=== PATIENT | female | born 1990 | race Caucasian/White ===

== ENCOUNTER 2016-07-12 09:32 | Emergency (ER) | payer MEDICAID ==
[~2016-07-12] VITALS: Ht 177.8 cm; Wt 64.0 kg
[2016-07-12 09:40] VITALS: BP 110/56; PULSE 68; RESP 16; TEMP 98.3; O2SAT 98
[2016-07-12] MEDS ORDERED: SODIUM CHLOR 0.9% 1000 ML INJ 1,000 ML IV SCH (09:46)
[2016-07-12] MEDS ORDERED: PERC5TAB12 PO (09:52)
[2016-07-12] MEDS ORDERED: ONDANSETRON HCL 4 MG/2 ML VIAL IVP ONE (10:00)
[2016-07-12] MEDS ORDERED: SODIUM CHLORIDE 0.9% FLUSH 5 ML FLUSH IVF PRN (10:00)
[2016-07-12 10:17] LABS: BLOOD, URINE NEG (NEG); GLUCOSE,URINE NEG (NEG); KETONE, URINE NEG (NEG); NITRITE,URINE NEG (NEG); PH, URINE 8.5 (5.0-8.5)
--- NOTE | 2016-07-12 10:17 | PD ---
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 She denies any unusual vaginal discharge, vaginal bleeding, urinary symptoms, or other issues. She does not know any sick contacts. Modifying Factors: None Associated Signs & Symptoms: Nausea, vomiting, diarrhea, low-grade fevers, Risk Factors: None PFSH Past Medical History ADHD: Yes ( A CHILD NOT MEDICATED NOW) Diabetes: No Diminished Hearing: No Medical other: Yes Immunizations Current: Yes Tetanus Vaccination: < 5 Years Influenza Vaccination: Yes ?: : 5 Para: 2 Miscarriage: 2 : 2 Ovarian Cysts: Yes Social History Alcohol Use: No Tobacco Use: No Substance Use: No Allergies-Medications (Allergen,Severity, Reaction): Coded Allergies: Contrast Media (Verified Allergy, Severe, vomiting, hives, 07/12/16) Tramadol (Unverified Allergy, Severe, UNK, 07/12/16) Penicillin (Verified Allergy, Unknown, unknown, 07/12/16) Reported Meds & Prescriptions Reported Meds & Active Scripts Active Reported Percocet (Oxycodone-Acetaminophen) 5-325 mg Tab 1 Tab PO Q4H PRN Review of Systems Except as stated in HPI: all other systems reviewed are Neg Physical Exam Narrative GENERAL: Well-nourished, well-developed young white female patient in no acute distress. SKIN: Warm and dry. HEAD: Normocephalic. EYES: No scleral icterus. No injection or drainage. NECK: Supple, trachea midline. CARDIOVASCULAR: Regular rate and rhythm without murmurs, gallops, or rubs. RESPIRATORY: Breath sounds equal bilaterally. No accessory muscle use. GASTROINTESTINAL: Abdomen soft, non-tender, nondistended. Benign. MUSCULOSKELETAL: No cyanosis, or edema. BACK: Nontender without obvious deformity. No CVA tenderness. Data Data Last Documented VS Vital Signs Date Time Temp Pulse Resp B/P Pulse Ox O2 Delivery O2 Flow Rate FiO2 07/12/16 10:19 98 Room Air 07/12/16 09:40 98.3 68 16 110/56 Orders Beta Hcg (Quant/Titer) (07/12/16 09:46) Complete Blood Count With Diff (07/12/16 09:46) Comprehensive Metabolic Panel (07/12/16 09:46) Lipase (07/12/16 09:46) Urinalysis - C+S If Indicated (07/12/16 09:46) Iv Access Insert/Monitor (07/12/16 09:46) Ecg Monitoring (07/12/16 09:46) Oximetry (07/12/16 09:46) Ondansetron Inj (Zofran Inj) (07/12/16 10:00) Sodium Chlor 0.9% 1000 Ml Inj (Ns 1000 M (07/12/16 09:46) Sodium Chloride 0.9% Flush (Ns Flush) (07/12/16 10:00) Labs Laboratory Tests Test 07/12/16 10:10 White Blood Count 9.5 TH/MM3 Red Blood Count 3.93 MIL/MM3 Hemoglobin 11.8 GM/DL Hematocrit 35.5 % Mean Corpuscular Volume 90.2 FL Mean Corpuscular Hemoglobin 30.0 PG Mean Corpuscular Hemoglobin 33.3 % Concent Red Cell Distribution Width 12.9 % Platelet Count 229 TH/MM3 Mean Platelet Volume 8.0 FL Neutrophils (%) (Auto) 72.9 % Lymphocytes (%) (Auto) 22.1 % Monocytes (%) (Auto) 3.6 % Eosinophils (%) (Auto) 0.5 % Basophils (%) (Auto) 0.9 % Neutrophils # (Auto) 7.0 TH/MM3 Lymphocytes # (Auto) 2.1 TH/MM3 Monocytes # (Auto) 0.3 TH/MM3 Eosinophils # (Auto) 0.0 TH/MM3 Basophils # (Auto) 0.1 TH/MM3 CBC Comment DIFF FINAL Differential Comment Urine pH 8.5 Urine Protein NEG mg/dL Urine Glucose (UA) NEG mg/dL Urine Ketones NEG mg/dL Urine Occult Blood NEG Urine Nitrite NEG Urine Bilirubin NEG Urine Leukocyte Esterase NEG Sodium Level 141 MEQ/L Potassium Level 3.7 MEQ/L Chloride Level 106 MEQ/L Carbon Dioxide Level 26.5 MEQ/L Anion Gap 9 MEQ/L Blood Urea Nitrogen 10 MG/DL Creatinine 0.63 MG/DL Estimat Glomerular Filtration 113 ML/MIN Rate Random Glucose 80 MG/DL Calcium Level 8.4 MG/DL Total Bilirubin 0.4 MG/DL Aspartate Amino Transf 7 U/L (AST/SGOT) Alanine Aminotransferase 13 U/L (ALT/SGPT) Alkaline Phosphatase 57 U/L Total Protein 6.6 GM/DL Albumin 3.6 GM/DL Lipase 91 U/L Human Chorionic Gonadotropin, 173[address] MIU/ML Quant MDM Medical Decision Making Medical Screen Exam Complete: Yes Emergency Medical Condition: Yes Medical Record Reviewed: Yes Interpretation(s) Laboratory Tests Test 07/12/16 10:10 Red Blood Count 3.93 MIL/MM3 (4.00-5.30) Neutrophils (%) (Auto) 72.9 % (16.0-70.0) Calcium Level 8.4 MG/DL (8.5-10.1) Aspartate Amino Transf 7 U/L (15-37) (AST/SGOT) Human Chorionic Gonadotropin, [address] MIU/ML Quant (0-5) Differential Diagnosis Nausea, vomiting, diarrhea, fevers, dehydration versus metabolic issues versus hyperemesis gravidarum versus gastroenteritis Narrative Course Abdomen is benign and I do not suspect an acute intra-abdominal process. A CT is consistent with dates and ultrasound transabdominally done by me in the ER does show an IUP. At this point, patient was given IV fluids and antibiotics in the ER and on reevaluation at 11:20 AM is doing better, has had no vomiting episodes in the ER. 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 Return for any worsening in vomiting, any abdominal pain, leading, or new symptoms as needed. The plan has been discussed with her and she states understanding. Procedures Procedure Narrative Transabdominal ultrasound done by me shows early IUP. Diagnosis Primary Impression: MILD HYPEREMESIS GRAVIDARUM Med/Other Pt SpecificInfo: Prescription(s) given Scripts Metoclopramide (Reglan)10 Mg Tab10 Mg PO TIDAC PRN (NAUSEA OR VOMITING) #15 TAB Ref 0 Prov:Kyung Dubose MD 07/12/16 Disposition: 01 DISCHARGE HOME Condition: Stable Kyung Dubose MD Jul 12, 2016 10:17
[2016-07-12 10:19] VITALS: O2SAT 98
[2016-07-12 10:20] LABS: BASOPHIL # 0.1 TH/MM3 (0-0.2); BASOPHIL % 0.9 % (0.0-2.0); EOSINOPHIL % 0.5 % (0.0-4.0); HEMATOCRIT 35.5 % (35.0-46.0); HEMO FLAGS DIFF FINAL; LYMPH % 22.1 % (9.0-44.0); LYMPHOCYTE # 2.1 TH/MM3 (1.0-4.8); MEAN CELL VOLUME 90.2 FL (80.0-100.0); MEAN CORPUSCULAR HGB CONC 33.3 % (32.0-36.0); MONO % 3.6 % (0.0-8.0); NEUT % 72.9 % (16.0-70.0); PLATELET COUNT 229 TH/MM3 (150-450); RED BLOOD COUNT 3.93 MIL/MM3 (4.00-5.30); RED CELL DISTRIBUTION WIDTH 12.9 % (11.6-17.2); WHITE BLOOD COUNT 9.5 TH/MM3 (4.0-11.0)
[2016-07-12 10:24] LABS: BACTERIA, URINE MOD /hpf; COMMENT (UR) CULTURE INDICATED; CULTURE IF INDICATED CULTURE INDICATED; METHOD OF COLLECTION CLEAN CATCH; SQUAMOUS EPITHELIAL CELL URINE > 8 /hpf (0-5); URINE COLOR YELLOW (YELLW/STRAW); WBC, URINE 0-2 /hpf (0-5)
[2016-07-12 10:26] LABS: CHLORIDE 106 MEQ/L (98-107); POTASSIUM 3.7 MEQ/L (3.5-5.1); SODIUM (NA) 141 MEQ/L (136-145)
[2016-07-12 10:31] LABS: ANION GAP 9 MEQ/L (5-15); BICARBONATE 26.5 MEQ/L (21.0-32.0); BLOOD UREA NITROGEN 10 MG/DL (7-18)
[2016-07-12 10:33] LABS: ALT (GPT) 13 U/L (10-53)
[2016-07-12 10:34] LABS: AST (GOT) 7 U/L (15-37); GLOMERULAR FILTRATION RATE 113 ML/MIN (>89)
[2016-07-12 10:35] LABS: TOTAL BILIRUBIN ADULT 0.4 MG/DL (0.2-1.0)
[2016-07-12 10:36] LABS: ALKALINE PHOSPHATASE 57 U/L (45-117)
[2016-07-12 10:52] LABS: BETA HCG QUANT 42901 MIU/ML (0-5)
[2016-07-12] MEDS ORDERED: REGL10TA5 PO (11:24)
[2016-07-12 11:26] VITALS: BP 99/55; PULSE 55; RESP 17; O2SAT 100
== END 2016-07-12 11:37 | disposition home or self-care (01) ==
LOC: PHED 09:32
DX: O21.0 Mild hyperemesis gravidarum (principal); Z3A.09 9 weeks gestation of pregnancy; R50.9 Fever, unspecified
CPT/HCPCS: 80053; 81001; 83690; 84702; 85025; 87086; 96361; 96374; 99284; J2405; J7030

== ENCOUNTER 2016-07-17 21:35 | Emergency (ER) | payer MEDICAID ==
[~2016-07-17] VITALS: Ht 177.8 cm; Wt 64.7 kg
[~2016-07-17 21:35] MED LIST: PERC5TAB12 PO; REGL10TA5 PO
[2016-07-17 21:45] VITALS: BP 98/66; PULSE 63; RESP 20; TEMP 98.9; O2SAT 100
[2016-07-18] MEDS ORDERED: ONDANSETRON HCL 4 MG/2 ML VIAL IV PUSH ONE ×2 (00:30→02:00)
[2016-07-18] MEDS ORDERED: SODIUM CHLOR 0.9% 1000 ML INJ 1,000 ML IV ONE ×2 (00:30→02:00)
--- NOTE | 2016-07-18 00:30 | PD ---
HPI Chief Complaint: GI Complaint Time Seen by Provider: 00:21 Travel History International Travel<30 days: No Contact w/Intl Traveler<30days: No Traveled to known affect area: No History of Present Illness HPI 25-year-old female presents to the emergency department for complaint of vomiting and vomiting with streaks of blood and generalized abdominal pain. Patient was seen for same complaint Friday 5 days ago. Patient states she does not feel any improvement. Patient denies any vaginal bleeding or vaginal discharge. Patient's last menstrual period was 05/18/16. Patient states she is 5 para 2 AB 2. Patient is not yet seen an SLP. Patient is not taking vitamins. Patient denies tobacco use. Patient's had no sore throat no earache no cough no congestion no chest pain no flank pain no localized abdominal pain. Patient was seen in April for same complaint and CT of the abdomen and pelvis revealed no acute abnormality. PFSH Past Medical History Narrative Medical ADHD anemia chief 5 P2 Ab2 LMP 05/18/16 ovarian cyst no tobacco use nursing notes reviewed ADHD: Yes ( A CHILD NOT MEDICATED NOW) Anemia: Yes ("LOW IRON") Diabetes: No Diminished Hearing: No Immunizations Current: Yes Influenza Vaccination: Yes ?: LMP: 05/18/16 : 5 Para: 2 Miscarriage: 2 : 0 Ovarian Cysts: Yes Past Surgical History Surgical History: No Previous Surgery Social History Alcohol Use: No Tobacco Use: No (QUIT MAY 2016) Substance Use: No Allergies-Medications (Allergen,Severity, Reaction): Coded Allergies: Contrast Media (Verified Allergy, Severe, vomiting, hives, 07/17/16) Tramadol (Unverified Allergy, Severe, UNK, 07/17/16) Penicillin (Verified Allergy, Unknown, unknown, 07/17/16) Reported Meds & Prescriptions Reported Meds & Active Scripts Active Phenergan (Promethazine HCl) 25 Mg Tab 25 Mg PO Q6H PRN Keflex (Cephalexin) 500 Mg Cap 500 Mg PO Q6H 7 Days Reglan (Metoclopramide HCl) 10 Mg Tab 10 Mg PO TIDAC PRN Reported Percocet (Oxycodone-Acetaminophen) 5-325 mg Tab 1 Tab PO Q4H PRN Review of Systems Except as stated in HPI: all other systems reviewed are Neg Physical Exam Narrative GENERAL: Well-developed well-nourished female in no acute distress no respiratory distress SKIN: Warm and dry. HEAD: Normocephalic. EYES: No scleral icterus. No injection or drainage. NECK: Supple, trachea midline. No JVD or lymphadenopathy. CARDIOVASCULAR: Regular rate and rhythm without murmurs, gallops, or rubs. RESPIRATORY: Breath sounds equal bilaterally. No accessory muscle use. GASTROINTESTINAL: Abdomen soft, diffusely tender without guarding or rebound, nondistended. MUSCULOSKELETAL: No cyanosis, or edema. BACK: Nontender without obvious deformity. No CVA tenderness. Data Data Last Documented VS Vital Signs Date Time Temp Pulse Resp B/P Pulse Ox O2 Delivery O2 Flow Rate FiO2 07/18/16 05:16 81 16 95/51 100 Room Air 07/18/16 03:15 98.1 Orders Beta Hcg (Quant/Titer) (07/18/16 00:21) Complete Blood Count With Diff (07/18/16 00:21) Comprehensive Metabolic Panel (07/18/16 00:21) Urinalysis - C+S If Indicated (07/18/16 00:21) Sodium Chlor 0.9% 1000 Ml Inj (Ns 1000 M (07/18/16 00:30) Ondansetron Inj (Zofran Inj) (07/18/16 00:30) Urine Culture (07/18/16 00:30) Sodium Chlor 0.9% 1000 Ml Inj (Ns 1000 M (07/18/16 02:00) Potassium Chloride (Kcl) (07/18/16 02:00) Ondansetron Inj (Zofran Inj) (07/18/16 02:00) Acetaminophen (Tylenol) (07/18/16 02:45) Ceftriaxone Inj (Rocephin Inj) (07/18/16 03:00) Us Pelvis Preg(Sgl/ Gestat) (07/18/16 ) Labs Laboratory Tests Test 07/18/16 00:30 White Blood Count 13.3 TH/MM3 Red Blood Count 3.88 MIL/MM3 Hemoglobin 11.4 GM/DL Hematocrit 35.4 % Mean Corpuscular Volume 91.1 FL Mean Corpuscular Hemoglobin 29.4 PG Mean Corpuscular Hemoglobin 32.3 % Concent Red Cell Distribution Width 12.7 % Platelet Count 233 TH/MM3 Mean Platelet Volume 7.8 FL Neutrophils (%) (Auto) 60.2 % Lymphocytes (%) (Auto) 32.5 % Monocytes (%) (Auto) 5.8 % Eosinophils (%) (Auto) 1.0 % Basophils (%) (Auto) 0.5 % Neutrophils # (Auto) 8.0 TH/MM3 Lymphocytes # (Auto) 4.3 TH/MM3 Monocytes # (Auto) 0.8 TH/MM3 Eosinophils # (Auto) 0.1 TH/MM3 Basophils # (Auto) 0.1 TH/MM3 CBC Comment DIFF FINAL Differential Comment Urine Color YELLOW Urine Turbidity SLIGHT Urine pH 6.5 Urine Specific [place] 1.015 Urine Protein NEG mg/dL Urine Glucose (UA) NEG mg/dL Urine Ketones NEG mg/dL Urine Occult Blood NEG Urine Nitrite NEG Urine Bilirubin NEG Urine Leukocyte Esterase TRACE Urine RBC 0-2 /hpf Urine WBC 3-5 /hpf Urine Squamous Epithelial > 8 /hpf Cells Urine Bacteria MANY /hpf Microscopic Urinalysis Comment CULTURE INDICATED Sodium Level 140 MEQ/L Potassium Level 3.3 MEQ/L Chloride Level 105 MEQ/L Carbon Dioxide Level 28.1 MEQ/L Anion Gap 7 MEQ/L Blood Urea Nitrogen 16 MG/DL Creatinine 0.56 MG/DL Estimat Glomerular Filtration 130 ML/MIN Rate Random Glucose 84 MG/DL Calcium Level 8.3 MG/DL Total Bilirubin 0.2 MG/DL Aspartate Amino Transf 6 U/L (AST/SGOT) Alanine Aminotransferase 12 U/L (ALT/SGPT) Alkaline Phosphatase 60 U/L Total Protein 6.5 GM/DL Albumin 3.6 GM/DL Human Chorionic Gonadotropin, 345[address] MIU/ML Quant [facility] Medical Decision Making Medical Screen Exam Complete: Yes Emergency Medical Condition: Yes Medical Record Reviewed: Yes Interpretation(s) US pelvis: IUP positive heart rate; cyst CONCLUSION: 7-1/2 week intrauterine gestation Eb Marsh MD on July 18, 2016 at 6:10 Board Certified Radiologist. This report was verified electronically. Laboratory Tests Test 07/18/16 00:30 White Blood Count 13.3 TH/MM3 Red Blood Count 3.88 MIL/MM3 Hemoglobin 11.4 GM/DL Hematocrit 35.4 % Mean Corpuscular Volume 91.1 FL Mean Corpuscular Hemoglobin 29.4 PG Mean Corpuscular Hemoglobin 32.3 % Concent Red Cell Distribution Width 12.7 % Platelet Count 233 TH/MM3 Mean Platelet Volume 7.8 FL Neutrophils (%) (Auto) 60.2 % Lymphocytes (%) (Auto) 32.5 % Monocytes (%) (Auto) 5.8 % Eosinophils (%) (Auto) 1.0 % Basophils (%) (Auto) 0.5 % Neutrophils # (Auto) 8.0 TH/MM3 Lymphocytes # (Auto) 4.3 TH/MM3 Monocytes # (Auto) 0.8 TH/MM3 Eosinophils # (Auto) 0.1 TH/MM3 Basophils # (Auto) 0.1 TH/MM3 CBC Comment DIFF FINAL Differential Comment Urine Color YELLOW Urine Turbidity SLIGHT Urine pH 6.5 Urine Specific [place] 1.015 Urine Protein NEG mg/dL Urine Glucose (UA) NEG mg/dL Urine Ketones NEG mg/dL Urine Occult Blood NEG Urine Nitrite NEG Urine Bilirubin NEG Urine Leukocyte Esterase TRACE Urine RBC 0-2 /hpf Urine WBC 3-5 /hpf Urine Squamous Epithelial > 8 /hpf Cells Urine Bacteria MANY /hpf Microscopic Urinalysis Comment CULTURE INDICATED Sodium Level 140 MEQ/L Potassium Level 3.3 MEQ/L Chloride Level 105 MEQ/L Carbon Dioxide Level 28.1 MEQ/L Anion Gap 7 MEQ/L Blood Urea Nitrogen 16 MG/DL Creatinine 0.56 MG/DL Estimat Glomerular Filtration 130 ML/MIN Rate Random Glucose 84 MG/DL Calcium Level 8.3 MG/DL Total Bilirubin 0.2 MG/DL Aspartate Amino Transf 6 U/L (AST/SGOT) Alanine Aminotransferase 12 U/L (ALT/SGPT) Alkaline Phosphatase 60 U/L Total Protein 6.5 GM/DL Albumin 3.6 GM/DL Human Chorionic Gonadotropin, [address] MIU/ML Quant Differential Diagnosis Vomiting, hyperemesis gravidarum, UTI, ectopic , appendicitis, dehydration, electrolyte disturbance Narrative Course IV access obtained specimens collected and sent for resulting IV fluids administered along with Zofran 4 mg IV Patient identified to have abnormal urinalysis and leukocytosis concerning for UTI; Rocephin 1 g IV piggyback ordered to be administered along with additional Zofran and additional liter of normal saline; patient reports she has no problems with cephalosporins and takes those without allergic reaction Patient requesting work excuse Patient encouraged to complete course. As prescribed take medication as prescribed as needed for nausea vomiting monitor temperature for fever take acetaminophen/Tylenol as needed for discomfort and to follow-up with her SLP. Quantitative hCG has doubled since last visit; ultrasound to rule out ectopic ordered Diagnosis Primary Impression: UTI (urinary tract infection) Qualified Code: N39.0 - Urinary tract infection without hematuria, site unspecified Additional Impressions: Qualified Code: Z3A.01 - Less than 8 weeks gestation of Vomiting Qualified Code: R11.2 - Non-intractable vomiting with nausea, unspecified vomiting type Hyperemesis gravidarum Referrals: Spd Tech call for appointment Patient Instructions: General Instructions Departure Forms: Tests/Procedures, Work Release Special Instructions: no work x 2 days Additional Instructions: Increase fluid hydration Follow-up with your SLP Take vitamins Take Phenergan as prescribed as needed for nausea and/or vomiting; do NOT use previously prescribed Reglan if taking phenergan Complete course of antibiotic as prescribed Return to the emergency department for any concerns or change in condition Monitor temperature every 4 hours with thermometer and take as needed acetaminophen/Tylenol for fever 100.4F or greater or for minor pain No work 2 days Med/Other Pt SpecificInfo: Prescription(s) given Scripts Promethazine (Phenergan)25 Mg Tab25 Mg PO Q6H PRN (Nausea/Vomiting) #10 TAB Ref 0 Prov:Emili Marie MD 07/18/16 Cephalexin (Keflex)500 Mg [id number] Mg PO Q6H 7 Days Ref 0 Prov:Emili Marie MD 07/18/16 Disposition: 01 DISCHARGE HOME Condition: Stable Emili Marie MD Jul 18, 2016 00:30
[2016-07-18 00:43] LABS: BASOPHIL # 0.1 TH/MM3 (0-0.2); BASOPHIL % 0.5 % (0.0-2.0); EOSINOPHIL # 0.1 TH/MM3 (0-0.4); HEMATOCRIT 35.4 % (35.0-46.0); HEMO FLAGS DIFF FINAL; LYMPH % 32.5 % (9.0-44.0); LYMPHOCYTE # 4.3 TH/MM3 (1.0-4.8); MEAN CELL VOLUME 91.1 FL (80.0-100.0); MEAN CORPUSCULAR HEMOGLOBIN 29.4 PG (27.0-34.0); MEAN CORPUSCULAR HGB CONC 32.3 % (32.0-36.0); MONO % 5.8 % (0.0-8.0); NEUT % 60.2 % (16.0-70.0); PLATELET COUNT 233 TH/MM3 (150-450); RED BLOOD COUNT 3.88 MIL/MM3 (4.00-5.30); RED CELL DISTRIBUTION WIDTH 12.7 % (11.6-17.2); WHITE BLOOD COUNT 13.3 TH/MM3 (4.0-11.0)
[2016-07-18 00:44] LABS: BLOOD, URINE NEG (NEG); GLUCOSE,URINE NEG (NEG); KETONE, URINE NEG (NEG); NITRITE,URINE NEG (NEG); PH, URINE 6.5 (5.0-8.5)
[2016-07-18 00:45] LABS: URINE COLOR YELLOW (YELLW/STRAW)
[2016-07-18 00:52] LABS: BACTERIA, URINE MANY /hpf; COMMENT (UR) CULTURE INDICATED; CULTURE IF INDICATED CULTURE INDICATED; RBC, URINE 0-2 /hpf (0-3); SQUAMOUS EPITHELIAL CELL URINE > 8 /hpf (0-5)
[2016-07-18 00:55] LABS: CHLORIDE 105 MEQ/L (98-107); POTASSIUM 3.3 MEQ/L (3.5-5.1); SODIUM (NA) 140 MEQ/L (136-145)
[2016-07-18 00:58] LABS: ANION GAP 7 MEQ/L (5-15); BICARBONATE 28.1 MEQ/L (21.0-32.0)
[2016-07-18 00:59] LABS: BLOOD UREA NITROGEN 16 MG/DL (7-18)
[2016-07-18 01:01] LABS: ALT (GPT) 12 U/L (10-53)
[2016-07-18 01:02] LABS: AST (GOT) 6 U/L (15-37); GLOMERULAR FILTRATION RATE 130 ML/MIN (>89)
[2016-07-18 01:03] LABS: TOTAL BILIRUBIN ADULT 0.2 MG/DL (0.2-1.0)
[2016-07-18 01:04] LABS: ALKALINE PHOSPHATASE 60 U/L (45-117)
[2016-07-18 01:19] LABS: BETA HCG QUANT 79965 MIU/ML (0-5)
[2016-07-18] MEDS ORDERED: POTASSIUM CHLORIDE 20 MEQ CONTROLLED RELEASE TAB PO ONE (02:00)
[2016-07-18] MEDS ORDERED: ACETAMINOPHEN 325 MG TAB PO ONE (02:45)
[2016-07-18] MEDS ORDERED: cefTRIAXone INJ 1,000 MG in SODIUM CHLORIDE 0.9% INJ 100 ML IV ONE (03:00)
[2016-07-18 03:15] VITALS: BP 97/56; PULSE 68; RESP 18; TEMP 98.1; O2SAT 100
[2016-07-18] MEDS ORDERED: PROM25TA5 PO (05:14)
[2016-07-18] MEDS ORDERED: CEPH-460 PO (05:14)
[2016-07-18 05:16] VITALS: BP 95/51; PULSE 81; RESP 16; O2SAT 100
--- NOTE | 2016-07-18 06:14 | RADHPO ---
EXAM DATE/TIME: 07/18/2016 04:25 [place] COMPARISON: No previous studies available for comparison. INDICATIONS : Ectopic. LAB(S): Beta-hC,965 MEDICAL HISTORY : . Ovarian cysts. ADHD. SURGICAL HISTORY : No recorded surgery. ENCOUNTER: Initial ACUITY: 1 week PAIN SCORE: 5/10 LOCATION: Bilateral pelvis MEASUREMENTS: UTERUS: 10.5 x 6.9 x 5.9 cm ENDOMETRIAL STRIPE: 11 mm RIGHT OVARY: 3.7 x 3.7 x 3.4 cm LEFT OVARY: 3.4 x 1.7 x 1.4 cm FINDINGS: UTERUS: An intrauterine gestation is present with estimated gestational age of 7-1/2 weeks cardiac acti vity is detected at 141 beats per minute. RIGHT OVARY: 2.7 cm cyst which may be corpus luteum LEFT OVARY: Ovary contains no mass or significant cystic lesion. MISCELLANEOUS: No free fluid. CONCLUSION: 7-1/2 week intrauterine gestation Eb Marsh MD on July 18, 2016 at 6:10 Board Certified Radiologist. This report was verified electronically.
== END 2016-07-18 06:09 | disposition home or self-care (01) ==
LOC: PHED 21:35
DX: O23.41 Unspecified infection of urinary tract in pregnancy, first trimester (principal); O21.0 Mild hyperemesis gravidarum; B96.89 Other specified bacterial agents as the cause of diseases classified elsewhere; Z3A.01 Less than 8 weeks gestation of pregnancy
CPT/HCPCS: 76801; 80053; 81001; 84702; 85025; 87086; 96361; 96365; 96375; 96376; 99284; J0696; J2405; J7030

== ENCOUNTER 2016-12-02 20:54 | Inpatient (IN) | payer MEDICAID ==
[2016-12-02] VITALS (7 sets, daily range): BP systolic 90–108; BP diastolic 46–72; PULSE 81–92
[~2016-12-02] VITALS: Ht 175.3 cm; Wt 72.6 kg
[~2016-12-02 20:54] MED LIST changes: +CEPH-460 PO; +PROM25TA5 PO
[2016-12-02] MEDS ORDERED: MAGNESIUM SULFATE 40 GM PREMIX 1,000 ML IV SCH (22:36)
[2016-12-02] MEDS ORDERED: ceFAZolin 2 GM PREMIX 50 ML IV ONE (22:44)
[2016-12-02] MEDS ORDERED: ACETAMINOPHEN 325 MG TAB PO PRN (22:45)
[2016-12-02] MEDS ORDERED: ONDANSETRON HCL 4 MG/2 ML VIAL IV PRN (22:45)
[2016-12-02] MEDS ORDERED: MAGNESIUM SULFATE 4 GM PREMIX 100 ML IV ONE (22:45)
[2016-12-02] MEDS ORDERED: SODIUM CHLORIDE 0.9% FLUSH 10 ML FLUSH IV FLUSH PRN (22:45)
[2016-12-02] MEDS ORDERED: CALCIUM GLUCONATE 10% 1 GM/10 ML VIAL IV PRN (22:45)
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
[2016-12-02] MEDS ORDERED: GABA300C5 PO (22:50)
[2016-12-02] MEDS ORDERED: ULTR50TA5 PO (22:50)
[2016-12-02 23:00] LABS: BLOOD, URINE LARGE (NEG); COMMENT (UR) CULTURE INDICATED; CULTURE IF INDICATED CULTURE INDICATED; GLUCOSE,URINE NEG (NEG); KETONE, URINE NEG (NEG); NITRITE,URINE NEG (NEG); SQUAMOUS EPITHELIAL CELL URINE <1 /hpf (0-5); URINE COLOR YELLOW (YELLW/STRAW)
[2016-12-02] MEDS ORDERED: BETAMETHASONE SOD PHOS/ACETATE SUSP 30 MG/5 ML VIAL IM SCH (23:00)
[2016-12-02 23:06] LABS: AMPHETAMINE, URINE NEG (NEG); BARBITURATES, URINE NEG (NEG); COCAINE, URINE NEG (NEG)
[2016-12-02] MEDS: LACTATED RINGER'S 1000 ML INJ 1,000 ML IV SCH ×2 (23:07→23:36)
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
[2016-12-03] VITALS (13 sets, daily range): BP systolic 99–119; BP diastolic 57–69; PULSE 74–84; RESP 18–20; TEMP 97.5
[2016-12-03] MEDS ORDERED: BUTORPHANOL TARTRATE INJ 2 MG/ML VIAL IM PRN (00:30)
[2016-12-03 00:53] LABS: CHLAMYDIA PCR NOT DETECTED (NOT DETECT); NEISSERIA PCR NOT DETECTED (NOT DETECT)
--- NOTE | 2016-12-03 03:32 | PD.OB.ANTE ---
Subjective Interval History RN notified me that pt continues to c/o leaking. pt reports she is still feeling vaginal pressure, but decreased pain with contractions Objective Vital Signs Vital Signs Date Time Temp Pulse Resp B/P Pulse Ox O2 Delivery O2 Flow Rate FiO2 12/03/16 00:00 74 101/61 12/02/16 23:45 92 108/72 12/02/16 23:40 84 98/62 12/02/16 23:35 84 106/54 12/02/16 23:30 85 99/58 12/02/16 23:25 88 98/63 12/02/16 23:22 85 90/46 12/02/16 23:17 81 104/61 Lab & Micro Results Test 12/02/16 12/02/16 21:30 22:05 Urine Color YELLOW Urine Turbidity CLEAR Urine pH 7.0 Urine Specific [place] 1.012 Urine Protein NEG mg/dL Urine Glucose (UA) NEG mg/dL Urine Ketones NEG mg/dL Urine Occult Blood LARGE Urine Nitrite NEG Urine Bilirubin NEG Urine Urobilinogen LESS THAN 2.0 MG/DL Urine Leukocyte Esterase TRACE Urine RBC /hpf Urine WBC 9 /hpf Urine Squamous Epithelial <1 /hpf Cells Microscopic Urinalysis Comment CULTURE INDICATED Urine Opiates Screen NEG Urine Barbiturates Screen NEG Urine Amphetamines Screen NEG Urine Benzodiazepines Screen NEG Urine Cocaine Screen NEG Urine Cannabinoids Screen NEG Clue Cells (Wet Prep) NONE SEEN Vaginal Trichomonas (Wet Prep) NONE SEEN Vaginal Yeast (Wet Prep) NONE SEEN Fibronectin POSITIVE Chlamydia trachomatis DNA NOT DETECTED (PCR) Neisseria gonorrhoeae DNA NOT DETECTED (PCR) Blood Type O POSITIVE Blood Bank Comment Date/Time Procedure Status Source Growth 12/02/16 21:30 Urine Culture Received Urine Clean Catch Pending Physical Exam GENERAL: Well-nourished, well-developed patient. ABDOMEN/GI: gravid GENITOURINARY: External Genitalia: intact and normal in appearance Cervix: [visually closed with scant mucous/bloody discharge at os Dilatation: visually closed Effacement: [-] Station: [-] Presentation: [-] Membranes: negative pool, negative valsalva, amnisure swab collected faintly + but blood present Uterine Contractions: none tracing on toco FHT's: Category: 1 Baseline: 130s Reactive: [-] Variability: [-] Decels: [-] EXTREMITIES: No cyanosis or edema, non-tender, without signs of DVT. Assessment and Plan Assessment and Plan 25 y/o with IUP at 27.1 wks with contractions, + FFN, and questionable SROM continue current care Valentin Pérez MD Dec 03, 2016 03:32
--- NOTE | 2016-12-03 06:56 | PD.OB.ANTE ---
Subjective Interval History Patient continues to feel abdominal pressure and have vaginal bleeding. She also continues to feel that she is leaking fluid. She is having widely spaced contractions. She also notes a headache since starting the medications. Positive movement. She denies any lightheadedness, chest pain, or shortness of breath. Antepartum ROS: Reports: Loss of fluid, Vaginal bleeding, movement normal , Contractions, Denies: New complaints (Ifeoma Carrion MD R2) Objective Vital Signs Vital Signs Date Time Temp Pulse Resp B/P Pulse Ox O2 Delivery O2 Flow Rate FiO2 12/03/16 06:00 79 101/61 12/03/16 06:00 18 12/03/16 05:00 78 103/57 12/03/16 04:00 77 104/61 12/03/16 03:00 78 99/60 12/03/16 02:00 80 114/66 12/03/16 01:00 84 102/66 12/03/16 00:00 18 12/03/16 00:00 74 101/61 12/02/16 23:45 92 108/72 12/02/16 23:40 84 98/62 12/02/16 23:35 84 106/54 12/02/16 23:30 85 99/58 12/02/16 23:25 88 98/63 12/02/16 23:22 85 90/46 12/02/16 23:17 81 104/61 Lab & Micro Results Test 12/02/16 12/02/16 21:30 22:05 Urine Color YELLOW Urine Turbidity CLEAR Urine pH 7.0 Urine Specific [place] 1.012 Urine Protein NEG mg/dL Urine Glucose (UA) NEG mg/dL Urine Ketones NEG mg/dL Urine Occult Blood LARGE Urine Nitrite NEG Urine Bilirubin NEG Urine Urobilinogen LESS THAN 2.0 MG/DL Urine Leukocyte Esterase TRACE Urine RBC /hpf Urine WBC 9 /hpf Urine Squamous Epithelial <1 /hpf Cells Microscopic Urinalysis Comment CULTURE INDICATED Urine Opiates Screen NEG Urine Barbiturates Screen NEG Urine Amphetamines Screen NEG Urine Benzodiazepines Screen NEG Urine Cocaine Screen NEG Urine Cannabinoids Screen NEG Clue Cells (Wet Prep) NONE SEEN Vaginal Trichomonas (Wet Prep) NONE SEEN Vaginal Yeast (Wet Prep) NONE SEEN Fibronectin POSITIVE Chlamydia trachomatis DNA NOT DETECTED (PCR) Neisseria gonorrhoeae DNA NOT DETECTED (PCR) Blood Type O POSITIVE Blood Bank Comment Date/Time Procedure Status Source Growth 12/02/16 21:30 Urine Culture Received Urine Clean Catch Pending Physical Exam GENERAL: Well-nourished, well-developed patient. CARDIOVASCULAR: Regular rate and rhythm without murmurs, gallops, or rubs. RESPIRATORY: Breath sounds equal bilaterally. No accessory muscle use. ABDOMEN/GI: Abdomen soft, diffusely tender to palpation. Fundus: 27 GENITOURINARY: External Genitalia: intact and normal in appearance Cervix: posterior Dilatation: 1 Effacement: 30 Station: -3 Presentation: breech Membranes: SROM Uterine Contractions: none FHT's: Category: I Baseline: 135 Reactive: + Variability: moderate Decels: none EXTREMITIES: No cyanosis or edema, non-tender, without signs of DVT. (Ifeoma Carrion MD R2) Assessment and Plan Assessment and Plan 25 y/o with IUP at 27-1/7 wks who presented with vaginal bleeding and lower abdominal pain. 1. Premature labor and possible PPROM. - Magnesium for tocolysis, Ancef for GBS prophylaxis, BMS for lung maturity, Erythromycin PO for PPROM - FFN positive - wet prep and culture negative - Official OB u/s this am 2. IUP- Category I tracing, reassuring. dw Dr. Pérez and Dr. Ashish Castro R1 (Ifeoma Carrion MD R2) Assessment and Plan The exam, history, and the medical decision-making described in the above note were completed with the assistance of the resident provider. I reviewed and agree with the findings presented. I attest that I had a [id number] encounter with the patient on the same day, and personally performed and documented my assessment and findings in the medical record. Pt continues to c/o feeling leakage. speculum exam performed again at bedside-- pool negative, valsalva negative. Small amount of bloody mucous at os. Inconclusive exam. PT to go to u/s this am. (Valentin Pérez MD) Ifeoma Carrion MD R2 Dec 03, 2016 06:56 Valentin Pérez MD Dec 03, 2016 08:36
[2016-12-03] MEDS ORDERED: ERYTHROMYCIN EC 500 MG TABEC PO SCH (08:00)
[2016-12-03] MEDS ORDERED: SODIUM CHLORIDE 0.9% FLUSH 10 ML FLUSH IV FLUSH SCH (09:00)
--- NOTE | 2016-12-03 11:36 | HHI.DCPOC ---
Discharge Care Plan Diagnosis: (1) PROM (premature rupture of membranes) (2) Premature labor Report Symptoms to Your Doctor -Temperature above 100.5 degrees -Redness, of incision or excessive or foul smelling drainage -Unusual pain or calf pain -Increased vaginal bleeding -Painful or difficulty urinating -Feelings of extreme sadness or anxiety after 2 weeks Goals to Promote Your Health * To prevent worsening of your condition and complications * To maintain your health at the optimal level Directions to Meet Your Goals Take your medications as prescribed Follow your dietary instruction Follow activity as directed Ensure plenty of rest for recovery Drink fluids for hydration Keep your appointments as scheduled Take your immunizations and boosters as scheduled If your symptoms worsen call your PCP, if no PCP go to Urgent Care Center or Emergency Room Smoking is Dangerous to Your Health. Avoid second hand smoke Call the 24-hour crisis hotline for domestic abuse at Ifeoma Carrion MD R2 Dec 03, 2016 11:36
--- NOTE | 2016-12-03 11:59 | PD.TRANSFR ---
Transfer Summary Admission Date Dec 03, 2016 at 11:14 Transfer Date: Dec 03, 2016 Admitting Diagnosis Diagnoses: (1) Premature labor (2) PROM (premature rupture of membranes) Significant Findings Laboratory Tests Test 12/02/16 12/02/16 21:30 22:05 Urine Color YELLOW Urine Turbidity CLEAR Urine pH 7.0 Urine Specific [place] 1.012 Urine Protein NEG mg/dL Urine Glucose (UA) NEG mg/dL Urine Ketones NEG mg/dL Urine Occult Blood LARGE Urine Nitrite NEG Urine Bilirubin NEG Urine Urobilinogen LESS THAN 2.0 MG/DL Urine Leukocyte Esterase TRACE Urine RBC /hpf Urine WBC 9 /hpf Urine Squamous Epithelial <1 /hpf Cells Microscopic Urinalysis Comment CULTURE INDICATED Urine Opiates Screen NEG Urine Barbiturates Screen NEG Urine Amphetamines Screen NEG Urine Benzodiazepines Screen NEG Urine Cocaine Screen NEG Urine Cannabinoids Screen NEG Clue Cells (Wet Prep) NONE SEEN Vaginal Trichomonas (Wet Prep) NONE SEEN Vaginal Yeast (Wet Prep) NONE SEEN Fibronectin POSITIVE Chlamydia trachomatis DNA NOT DETECTED (PCR) Neisseria gonorrhoeae DNA NOT DETECTED (PCR) Blood Type O POSITIVE Blood Bank Comment Laboratory Tests Test 12/02/16 21:30 Urine Occult Blood LARGE (NEG) Urine Leukocyte Esterase TRACE (NEG) Urine WBC 9 /hpf (0-5) Transfer Summary Patient is a 25 year old at 27-1/7 weeks gestation who presented to the OB ED with bleeding for the past week and lower abdominal pain. She was found to have contractions, positive fibronectin, and questionable SROM (patient continues to note leakage of fluid and amnisure was positive in the presence of minimal bleeding). Ultrasound significant for REBECCA 18.5, EFW 1029g ( US one week ago showed 945g), size consistent with dates, no placental previa or abruption. She was treated with magnesium sulfate, betamethasone x 1, ancef , and erythromycin. Case was discussed with jack setter who recommended transfer of mother and baby to a tertiary care center as we are starting to anticipate an extremely early delivery. Proposed Disposition: Trnsfr to Other Facility Ifeoma Carrion MD R2 Dec 03, 2016 11:59
== END 2016-12-03 12:16 | disposition short-term general hospital (02) | DRG 778 ==
LOC: HOBED 20:54 → H2EA 22:37 → OBSVTOIN 12-03 11:14
PROVIDERS: ADMIT Obstetrics & Gynecology; ATTEND Obstetrics & Gynecology
DX: O60.02 Preterm labor without delivery, second trimester (principal); O42.912 Preterm premature rupture of membranes, unspecified as to length of time between rupture and onset of labor, second trimester; O99.334 Smoking (tobacco) complicating childbirth; F17.210 Nicotine dependence, cigarettes, uncomplicated; Z3A.27 27 weeks gestation of pregnancy
CPT/HCPCS: 76816; 80307; 81001; 82731; 87086; 87210; 87491; 87591; 99285; J0595; J0690; J0702; J2405; J3475; J7120

== ENCOUNTER 2016-12-28 18:57 | Emergency (ER) | payer MEDICAID | END 2016-12-28 19:35 | disposition left against medical advice (07) | LOC: HOBED 18:57 | DX: O62.9 Abnormality of forces of labor, unspecified (principal); Z53.21 Procedure and treatment not carried out due to patient leaving prior to being seen by health care provider; Z3A.31 31 weeks gestation of pregnancy | CPT/HCPCS: 99281 ==

== ENCOUNTER 2016-12-30 20:18 | Emergency (ER) | payer MEDICAID ==
[~2016-12-30] VITALS: Ht 175.3 cm; Wt 82.1 kg
[2016-12-30 21:58] LABS: BACTERIA, URINE RARE /hpf; BLOOD, URINE NEG (NEG); COMMENT (UR) CULTURE INDICATED; CULTURE IF INDICATED CULTURE INDICATED; GLUCOSE,URINE NEG (NEG); KETONE, URINE NEG (NEG); MUCUS URINE FEW /lpf (OCC); NITRITE,URINE NEG (NEG); SQUAMOUS EPITHELIAL CELL URINE 3 /hpf (0-5); URINE COLOR YELLOW (YELLW/STRAW)
[2016-12-30 22:00] LABS: AMPHETAMINE, URINE NEG (NEG); BARBITURATES, URINE NEG (NEG); COCAINE, URINE NEG (NEG)
[2016-12-30] MEDS ORDERED: LACTATED RINGER'S 1000 ML INJ 1,000 ML IV SCH (22:28)
[2016-12-30] MEDS ORDERED: SODIUM CHLORIDE 0.9% FLUSH 10 ML FLUSH IV FLUSH PRN (22:30)
[2016-12-30] MEDS ORDERED: CALCIUM GLUCONATE 10% 1 GM/10 ML VIAL IV PRN (22:30)
[2016-12-30] MEDS ORDERED: ONDANSETRON HCL 4 MG/2 ML VIAL IV PRN (22:30)
[2016-12-30] MEDS ORDERED: ACETAMINOPHEN 325 MG TAB PO PRN (22:30)
[2016-12-30] MEDS ORDERED: BETAMETHASONE SOD PHOS/ACETATE SUSP 30 MG/5 ML VIAL IM SCH (23:00)
[2016-12-30] MEDS ORDERED: ceFAZolin 2 GM PREMIX 50 ML IV SCH (23:00)
--- NOTE | 2016-12-31 00:20 | PD ---
HPI Chief Complaint Of abdominal pain possibly leaking fluid Date Seen: Dec 30, 2016 Time Seen: 21:00 Travel History International Travel<30 Days: No Contact w/Intl Traveler<30Days: No Known Affected Area: No History of Present Illness HPI Patient is 26-year-old white female with 31 weeks who is the process of changing doctors has no doctor and now that she she's getting care in sporadically somewhere, she presents Possibly leaking fluid and having abdominal pain. Her amnio sure is negative, and she is not mushtaq at this time a lot rate tracing is reactive Para: 2 : 5 Allergies-Medications (Allergen,Severity, Reaction): Coded Allergies: Contrast Media (Verified Allergy, Severe, vomiting, hives, 12/02/16) Penicillin (Verified Allergy, Unknown, unknown, 12/02/16) Review of Systems General / Constitutional: No: Fever, Weight Gain, Chills, Other Eyes: No: Diploplia, Blurred Vision, Visual changes, Pain, Photophobia HENT: No: Headaches, Vertigo, Lightheadedness Cardiovascular: No: Irregular Rhythm, Chest Pain or Discomfort, Palpitations, Tachycardia, Syncope, Varicosities, Edema, Cyanosis Respiratory: No: Cough, Short of Breath, Other Gastrointestinal: Abdominal Pain, No: Nausea, Vomiting, Diarrhea Genitourinary: No: Decreased Urinary Output, Oliguria Musculoskeletal: No: Limited ROM, Weakness, Cramping, Edema, Pain Skin: No Rash, No Itching, No Dryness, No Lumps, No Change in Pigmentation, No Change in Nails, No Alopecia, No Lesions Neurologic: No: Weakness, Dizziness, Syncope, Focal Abnormalities, Coordination Problem, Headache, Slurred Speech, Seizures Psychiatric: No: Depression, Suicidal Ideations, Homicidal Ideation Endocrine: No: Heat Intolerance, Cold Intolerance, Polydipsia, Polyuria, Other Physical Exam Narrative GENERAL: Well-nourished, well-developed patient. SKIN: Warm and dry. HEAD: Normocephalic and atraumatic. EYES: No scleral icterus. No injection or drainage. ENT: No nasal drainage noted. Mucous membranes pink. Airway patent. NECK: Supple, trachea midline. No JVD. CARDIOVASCULAR: Regular rate and rhythm without murmurs, gallops, or rubs. RESPIRATORY: Breath sounds equal bilaterally. No accessory muscle use. BREASTS: Bilateral exam showed no masses , no retractions, no nipple discharge. ABDOMEN/GI: Abdomen soft, non-tender, bowel sounds present, no rebound, no guarding Gravid to [-30] weeks size Fundal Height: [30-] GENITOURINARY: External Genitalia: intact and normal in appearance FFN done and + Cervix: [-] Dilatation: [1-] Effacement: [-thick] Station: [-3] Presentation: [-vtx] Membranes: [intact ] Uterine Contractions: [-none] FHT's: Category: [1-] Baseline: [133-] Reactive: [-yes] Variability: [mod-] Decels: [0-] EXTREMITIES: No cyanosis or edema. BACK: Nontender without obvious deformity. No CVA tenderness. NEUROLOGICAL: Awake and alert. Motor and sensory grossly within normal limits. Five out of 5 muscle strength in all muscle groups. Normal speech. Data Data Orders Vital Signs (Adult) .ON ADMISSION (12/30/16 21:02) ^ Labor Status (12/30/16 21:02) Urinalysis - C+S If Indicated (12/30/16 21:02) Fibronectin (12/30/16 21:02) Ob/Psych Drug Screen, Urine (12/30/16 21:02) Fentanyl Inj (Fentanyl Inj) (12/30/16 21:15) Urine Culture (12/30/16 21:05) Ur Bath Salts (12/30/16 21:05) Ur Heroin (12/30/16 21:05) Ur K2 Spice (12/30/16 21:05) Ur Ecstasy (12/30/16 21:05) Phencyclidine Urine (Pcp) (12/30/16 21:05) Place In Observation (12/30/16 ) Vital Signs (Adult) Q4H (12/30/16 22:28) Activity Bed Rest (12/30/16 22:28) Intake + Output CAMILA.QSHIFT (12/30/16 22:28) Heart CONTINUOUS (12/30/16 22:28) Lactated Ringer's 1000 Ml Inj (Lr 1000 M (12/30/16 22:28) Sodium Chloride 0.9% Flush (Ns Flush) (12/30/16 22:30) Sodium Chloride 0.9% Flush (Ns Flush) (12/31/16 09:00) Betamethasone Inj ([place] Soluspan In (12/30/16 23:00) Cefazolin Inj (Ancef Inj) (12/30/16 22:30) Calcium Gluconate Inj (Calcium Gluconate (12/30/16 22:30) Acetaminophen (Tylenol) (12/30/16 22:30) Ondansetron Inj (Zofran Inj) (12/30/16 22:30) Us Ob Limited (12/30/16 ) Cefazolin 2 Gm Premix (Ancef 2 Gm Premix (12/30/16 23:00) Labs Laboratory Tests Test 12/30/16 21:05 Urine Color YELLOW Urine Turbidity HAZY Urine pH 8.0 Urine Specific [place] 1.017 Urine Protein TRACE Urine Glucose (UA) NEG Urine Ketones NEG Urine Occult Blood NEG Urine Nitrite NEG Urine Bilirubin NEG Urine Urobilinogen LESS THAN 2.0 Urine Leukocyte Esterase LARGE Urine RBC 9 Urine WBC 47 Urine Squamous Epithelial 3 Cells Urine Amorphous Sediment RARE Urine Bacteria RARE Urine Mucus FEW Microscopic Urinalysis Comment CULTURE INDICATED Fibronectin POSITIVE Urine Opiates Screen NEG Urine Barbiturates Screen NEG Urine Amphetamines Screen NEG Urine Benzodiazepines Screen NEG Urine Cocaine Screen NEG Urine Cannabinoids Screen NEG Date/Time Procedure Status Source Growth 12/30/16 21:05 Urine Culture Worksheet Urine Clean Catch Pending [facility] Interpretation(s) Patient is a 26-year-old white female 31 weeks who presented complaining of fluid possibly leaking fluid and abdominal pain. M Essure was negative and her abdominal pain was not contractions. Cervix is fingertip long and the posterior. Fibronectin preoperative exam and that fibronectin was positive. Patient states that she's had positive fibronectin the past and with further pregnancies and and she delivered both her previous babies were last was 33 weeks. She is also received HER-2 doses of steroids IM in another location she just related that to us. Urinalysis was positive for UTIs she given a prescription for Macrobid 100 mg by mouth twice a day for a week Plan Patient's the 31 weeks with abdominal pain and possible leakage her amnio sure was negative she is not laboring pain soft tissue related and UTI and she was given a prescription for Macrobid, with her positive fibronectin it is a good that she started received IM steroids and she needs serial transvaginal ultrasounds and cervical length. On physical exam a cervical length is quite long I can palpate a very thick long cervix reverb transvaginal ultrasound will be the way to follow this as an outpatient. Patient states that Victor Manuel Quach which is tomorrow she will work at the end this week to establish her care and let them know that she had today's visit Joselin Diagnosis Diagnosis: Primary Impression: No leakage of amniotic fluid into vagina Additional Impressions: Threatened labor, antepartum UTI (urinary tract infection) Disposition: 01 DISCHARGE HOME Condition: Stable Patient Instructions: General Instructions, Early Labor Signs (ED), Movement (ED) Departure Forms: Tests/Procedures Rodrigo Garcia II, MD Dec 31, 2016 00:20
[2016-12-31] MEDS ORDERED: SODIUM CHLORIDE 0.9% FLUSH 10 ML FLUSH IV FLUSH SCH (09:00)
[2017-01-02] MEDS ORDERED: GABAPENTIN 300 MG CAP PO SCH (18:00)
[2017-01-03 17:04] LABS: BATH SALTS (MDPV) UR NEG (NEG); ECSTASY (MDMA) UR NEG (NEG); HEROIN (6-ACETYLMORPHINE) UR NEG (NEG); HYDROMORPHONE U NEG (NEG); K2 SPICE UR NEG (NEG); OBMETHADONE UR NEG (NEG); OXYCODONE (PERCODAN) NEG (NEG); PHENCYCLIDINE URINE NEG (NEG)
[2017-01-03 17:06] LABS: GABAPENTIN UR POS (NEG)
== END 2016-12-30 23:42 | disposition home or self-care (01) ==
LOC: HOBED 20:18
DX: Z03.71 Encounter for suspected problem with amniotic cavity and membrane ruled out (principal); O23.43 Unspecified infection of urinary tract in pregnancy, third trimester; O26.893 Other specified pregnancy related conditions, third trimester; R10.9 Unspecified abdominal pain; Z3A.31 31 weeks gestation of pregnancy
CPT/HCPCS: 80307; 81001; 82731; 84112; 87077; 87086; 87186; G0481; J3010

== ENCOUNTER 2017-01-01 08:09 | Inpatient (IN) | payer MEDICAID ==
[2017-01-01] VITALS (12 sets, daily range): BP systolic 102–114; BP diastolic 62–79; PULSE 80–112; RESP 16–20; TEMP 97.9–98.3
[2017-01-01] MEDS ORDERED: LACTATED RINGER'S 1000 ML INJ 1,000 ML IV SCH (08:35)
[2017-01-01] MEDS ORDERED: LACTATED RINGER'S 1000 ML INJ 1,000 ML IV PRN (08:35)
--- NOTE | 2017-01-01 08:41 | PD ---
HPI Chief Complaint Contractions Date Seen: Jan 01, 2017 Time Seen: 08:38 Travel History International Travel<30 Days: No Contact w/Intl Traveler<30Days: No History of Present Illness HPI 26-year-old at 31/2 weeks gestation presenting for abdominal pain/ contractions. Contractions started 2 days ago and were about an hour apart, progressing to 45 minutes apart in the evening of the first day. This morning, they increased in intensity and became closer together, now occurring approximately every 3-4 minutes. Of note, she had a positive an fissure last Friday and was referred to [facility] in [place] where she was given betamethasone one week ago and sent home after repeat an fissure was negative. She presented to OB ER on Friday morning and had a positive fibronectin test. She was given an antibiotic at that time for probable UTI based on urinalysis and mild cramping symptoms. Currently she denies vaginal bleeding, leakage of fluid. Noting positive movement. Denies chest pain, shortness of breath, dysuria. History Past Medical History Medical History: Denies Significant Hx Obstetric History Obstetric History Prior deliveries all vaginal Social History Alcohol Use: No Tobacco Use: Yes (3-4 cigarettes per day) Substance Abuse: No Allergies-Medications (Allergen,Severity, Reaction): Coded Allergies: Contrast Media (Verified Allergy, Severe, vomiting, hives, 12/02/16) Penicillin (Verified Allergy, Unknown, unknown, 12/02/16) Review of Systems Except as stated in HPI: all other systems reviewed are Neg Physical Exam Narrative GENERAL: Well-nourished, well-developed patient sitting in bed in excruciating pain SKIN: Warm and dry. HEAD: Normocephalic and atraumatic. EYES: No scleral icterus. No injection or drainage. ENT: No nasal drainage noted. Mucous membranes pink. Airway patent. NECK: Supple, trachea midline. No JVD. CARDIOVASCULAR: Regular rate and rhythm without murmurs, gallops, or rubs. RESPIRATORY: Breath sounds equal bilaterally. No accessory muscle use. BREASTS: Bilateral exam showed no masses , no retractions, no nipple discharge. ABDOMEN/GI: Abdomen soft, non-tender, bowel sounds present, no rebound, no guarding GENITOURINARY: External Genitalia: intact and normal in appearance Speculum exam: Dilated cervix with head visible Cervix: Soft, mid-position Dilatation: 4-5 Effacement: 90 Station: -2 Presentation: Vertex Membranes: Ruptured Uterine Contractions: Irregular every 2-5 minutes FHT's: Category: 1 Baseline: 140 Reactive: Y Variability: Moderate Decels: none EXTREMITIES: No cyanosis or edema. BACK: Nontender without obvious deformity. No CVA tenderness. NEUROLOGICAL: Awake and alert. Motor and sensory grossly within normal limits. Normal speech. Data Data Vital Signs Reviewed: Yes Orders Ob (2e) Additional Admit Info (01/01/17 08:36) [facility] Medical Record Reviewed: Yes Interpretation(s) 26-year-old at 31 weeks gestation presenting in labor #1 IUP Category 1 tracing, reassuring - Continue his monitoring #2 premature rupture of membrane Likely has ruptured since Friday given positive an fissure and no visible fluid bag on speculum exam - GBS prophylaxis indicated, however patient delivered before antibiotics can be given (see below) - Status post betamethasone on week ago at [facility] in [place] #3 precipitous delivery Patient progressed from 4-5 cm to complete and delivery within half an hour of admission - Check urine drug screen - Admit to for routine care sdw Dr. Pastrana Diagnosis Diagnosis: Primary Impression: Premature labor Qualified Code: O60.14X0 - labor in third trimester with delivery, not applicable or unspecified fetus Additional Impression: PROM (premature rupture of membranes) Qualified Code: O42.113 - premature rupture of membranes with onset of labor more than 24 hours following rupture in third trimester Ugo Mckeon MD R1 Jan 01, 2017 08:41
[2017-01-01] MEDS ORDERED: LIDOCAINE HCL 1% 50 ML VIAL INFIL PRN (08:45)
[2017-01-01] MEDS ORDERED: ONDANSETRON HCL 4 MG/2 ML VIAL IV PRN (08:45)
[2017-01-01] MEDS ORDERED: MINERAL OIL 10 ML VIAL TOPICAL PRN (08:45)
[2017-01-01] MEDS ORDERED: CITRIC ACID-SODIUM CITRATE LIQ 30 ML UDC PO SCH (08:45)
[2017-01-01] MEDS ORDERED: LIDOCAINE HCL 1% 50 ML VIAL I-DERMAL PRN (08:45)
[2017-01-01] MEDS ORDERED: OXYTOCIN 30 UNITS-500ML PREMIX 500 ML IV ONE (08:45)
[2017-01-01] MEDS ORDERED: SODIUM CHLORID 0.9% 500 ML INJ 500 ML IV PRN (08:45)
[2017-01-01] MEDS ORDERED: SODIUM CHLOR 0.9% 1000 ML INJ 1,000 ML IV PRN (08:55)
[2017-01-01] MEDS ORDERED: ceFAZolin 2 GM PREMIX 50 ML IV ONE (09:00)
--- NOTE | 2017-01-01 09:14 | PD.OB.DELI ---
Delivery Date: Jan 01, 2017 Anesthesia: None Episiotomy: None Vaginal Delivery: Normal Presentation: Occiput anterior Nuchal Cord: None Delayed cord clamping (45 sec): Yes : Female One Minute : 6 Five Minute : 7 Weight: 1535 g Placenta: Spontaneous delivery Laceration: No lacerations Additional Information Delivered by Dr. Mckeon Supervised by Dr. Pastrana (Ugo Mckeon MD R1) Attestation Malororous placenta noted, cultures obtained. Suspect prolonged rupture of membranes. (Opal Pastrana MD) Ugo Mckeon MD R1 Jan 01, 2017 09:14 Opal Pastrana MD Jan 01, 2017 10:00
[2017-01-01] MEDS ORDERED: SODIUM CHLORIDE 0.9% FLUSH 10 ML FLUSH IV FLUSH PRN (09:15)
[2017-01-01] MEDS ORDERED: ONDANSETRON ODT 4 MG TAB PO PRN (09:15)
[2017-01-01] MEDS ORDERED: BENZOCAINE 20% TOPICAL SPRAY 60 ML CAN TOPICAL PRN (09:15)
[2017-01-01] MEDS ORDERED: ZOLPIDEM TARTRATE 5 MG TAB PO PRN (09:15)
[2017-01-01] MEDS ORDERED: DOCUSATE SODIUM 50 MG/SENNA 8.6 MG TAB PO PRN (09:15)
[2017-01-01] MEDS ORDERED: ALUMINUM/MAGNESIUM/SIMETH 30 ML CUP PO PRN (09:15)
[2017-01-01 09:27] LABS: AUTOMATED NEUTROPHIL # 23.4 TH/MM3 (1.8-7.7); BASOPHIL # 0.1 TH/MM3 (0-0.2); BASOPHIL % 0.4 % (0.0-2.0); EOSINOPHIL % 0.1 % (0.0-4.0); HEMATOCRIT 33.2 % (35.0-46.0); LYMPH % 7.3 % (9.0-44.0); LYMPHOCYTE # 1.9 TH/MM3 (1.0-4.8); MEAN CELL VOLUME 90.5 FL (80.0-100.0); MEAN CORPUSCULAR HEMOGLOBIN 29.8 PG (27.0-34.0); MONO % 4.1 % (0.0-8.0); NEUT % 88.1 % (16.0-70.0); PLATELET COUNT 300 TH/MM3 (150-450); RED BLOOD COUNT 3.67 MIL/MM3 (4.00-5.30); RED CELL DISTRIBUTION WIDTH 13.2 % (11.6-17.2); WHITE BLOOD COUNT 26.5 TH/MM3 (4.0-11.0)
[2017-01-01 09:29] LABS: BLOOD GAS BASE EXCESS -0.2 mmol/L (-2-2); BLOOD GAS O2 HGB SATURATION 39 % (90-100); CORD BLOOD GAS HCO3 25 mmol/L (21-29); CORD BLOOD GAS PCO2 51 mmHG (34-78); CORD BLOOD GAS PH 7.32 (7.14-7.42)
[2017-01-01 09:30] LABS: CORD BLOOD GAS PO2 21 mmHG (3.0-40.0); DRAW SITE CORD BLOOD; STAT NO
[2017-01-01 09:32] LABS: HEMO FLAGS AUTO DIFF
[2017-01-01 09:43] LABS: BACTERIA, URINE FEW /hpf; BLOOD, URINE MOD (NEG); GLUCOSE,URINE TRACE mg/dL (NEG); KETONE, URINE NEG (NEG); NITRITE,URINE NEG (NEG); PH, URINE 6.5 (5.0-8.5); SQUAMOUS EPITHELIAL CELL URINE 2 /hpf (0-5); TRANSITIONAL EPI CELLS, URINE <1 /hpf; URINE COLOR YELLOW (YELLW/STRAW)
[2017-01-01 09:44] LABS: COMMENT (UR) CULTURE INDICATED; CULTURE IF INDICATED CULTURE INDICATED
[2017-01-01] MEDS: IBUPROFEN 600 MG TAB PO PRN ×3 (09:45→22:46)
[2017-01-01 10:00] LABS: AMPHETAMINE, URINE NEG (NEG); BARBITURATES, URINE NEG (NEG); COCAINE, URINE NEG (NEG)
[2017-01-01 10:01] LABS: BANDS 15 % (0-6); NEUTROPHIL # MANUAL DIFF 22.8 TH/MM3 (1.8-7.7); POLYS (SEG NEUTROPHILS) 71 % (16-70); WBC DIFF SAMPLE 100
[2017-01-01 10:02] LABS: PLATELET ESTIMATE SMEAR NORMAL (NORMAL); PLATELET MORPHOLOGY NORMAL (NORMAL); SCAN/DIFF FINAL DIFF MANUAL
[2017-01-01] MEDS: ACETAMINOPHEN 325 MG TAB PO PRN ×3 (10:17→20:03)
[2017-01-01] MEDS: WITCH HAZEL 50%/GLYCERIN 12.5% 40 PAD JAR TOPICAL PRN (10:18)
--- NOTE | 2017-01-01 12:39 | HHI.HP ---
History & Physical H&P HPI HPI Chief Complaint Contractions Date Seen: Jan 01, 2017 Time Seen: 08:38 Travel History International Travel<30 Days: No Contact w/Intl Traveler<30Days: No History of Present Illness HPI 26-year-old at 31/2 weeks gestation presenting for abdominal pain/ contractions. Contractions started 2 days ago and were about an hour apart, progressing to 45 minutes apart in the evening of the first day. This morning, they increased in intensity and became closer together, now occurring approximately every 3-4 minutes. Of note, she had a positive an fissure last Friday and was referred to [facility] in [place] where she was given betamethasone one week ago and sent home after repeat an fissure was negative. She presented to OB ER on Friday morning and had a positive fibronectin test. She was given an antibiotic at that time for probable UTI based on urinalysis and mild cramping symptoms. Currently she denies vaginal bleeding, leakage of fluid. Noting positive movement. Denies chest pain, shortness of breath, dysuria. History (Limited) History Past Medical History Medical History: Denies Significant Hx Obstetric History Obstetric History Prior deliveries all vaginal Social History Alcohol Use: No Tobacco Use: Yes (3-4 cigarettes per day) Substance Abuse: No Allergies-Medications Allergies-Medications (Allergen,Severity, Reaction): Coded Allergies: Contrast Media (Verified Allergy, Severe, vomiting, hives, 12/02/16) Penicillin (Verified Allergy, Unknown, unknown, 12/02/16) ROS Review of Systems Except as stated in HPI: all other systems reviewed are Neg Physical Exam Physical Exam Narrative GENERAL: Well-nourished, well-developed patient sitting in bed in excruciating pain SKIN: Warm and dry. HEAD: Normocephalic and atraumatic. EYES: No scleral icterus. No injection or drainage. ENT: No nasal drainage noted. Mucous membranes pink. Airway patent. NECK: Supple, trachea midline. No JVD. CARDIOVASCULAR: Regular rate and rhythm without murmurs, gallops, or rubs. RESPIRATORY: Breath sounds equal bilaterally. No accessory muscle use. BREASTS: Bilateral exam showed no masses , no retractions, no nipple discharge. ABDOMEN/GI: Abdomen soft, non-tender, bowel sounds present, no rebound, no guarding GENITOURINARY: External Genitalia: intact and normal in appearance Speculum exam: Dilated cervix with head visible Cervix: Soft, mid-position Dilatation: 4-5 Effacement: 90 Station: -2 Presentation: Vertex Membranes: Ruptured Uterine Contractions: Irregular every 2-5 minutes FHT's: Category: 1 Baseline: 140 Reactive: Y Variability: Moderate Decels: none EXTREMITIES: No cyanosis or edema. BACK: Nontender without obvious deformity. No CVA tenderness. NEUROLOGICAL: Awake and alert. Motor and sensory grossly within normal limits. Normal speech. Data Data Data Vital Signs Reviewed: Yes Orders Ob (2e) Additional Admit Info (01/01/17 08:36) MDM MDM Medical Record Reviewed: Yes Interpretation(s) 26-year-old at 31 weeks gestation presenting in labor #1 IUP Category 1 tracing, reassuring - Continue his monitoring #2 premature rupture of membrane Likely has ruptured since Friday given positive an fissure and no visible fluid bag on speculum exam - GBS prophylaxis indicated, however patient delivered before antibiotics can be given (see below) - Status post betamethasone on week ago at [facility] in [place] #3 precipitous delivery Patient progressed from 4-5 cm to complete and delivery within half an hour of admission - Check urine drug screen - Admit to for routine care sdw Dr. Pastrana Diagnosis Diagnosis: Primary Impression: Premature labor Qualified Code: O60.14X0 - labor in third trimester with delivery, not applicable or unspecified fetus Additional Impression: PROM (premature rupture of membranes) Qualified Code: O42.113 - premature rupture of membranes with onset of labor more than 24 hours following rupture in third trimester Ugo Mckeon MD R1 Jan 01, 2017 12:39
[2017-01-01] MEDS ORDERED: MEASLES, MUMPS, RUBELLA VACCINE 0.5 ML VIAL SQ ONE (16:00)
[2017-01-01] MEDS ORDERED: DIPHTH/TETANUS/ACEL PERTUSSIS (BOOSTER) 0.5 ML VIAL/PFS IM ONE (16:00)
[2017-01-02] MEDS: ACETAMINOPHEN 325 MG TAB PO PRN (00:11)
[2017-01-02] MEDS: IBUPROFEN 600 MG TAB PO PRN ×3 (07:40→22:27)
[2017-01-02 08:00] VITALS: BP 109/69; PULSE 68; RESP 18; TEMP 97.5
[2017-01-02] MEDS: SODIUM CHLORIDE 0.9% FLUSH 10 ML FLUSH IV FLUSH SCH (09:00)
[2017-01-02] MEDS: oxyCODONE/ACETAMINOPHEN 5 MG/325 MG TAB PO PRN ×3 (10:07→19:48)
[2017-01-02 10:31] LABS: RAPID PLASMA REAGIN SCREEN NON-REACTIVE (NON-REACTVE)
--- NOTE | 2017-01-02 11:08 | HHI.OB ---
Subjective Post Day: 1 Remarks 26 year old female s/p at 31/2 wks gestation, PPD 1. AFVSS. Patient reports she is feeling well. Bleeding is decreasing and pain is well- controlled. She is breast feeding and bonding well with baby. Ambulating without difficulties. She is tolerating a diet without nausea or vomiting. She has not had a bowel movement. She has passed gas. Denies chest pain, dysuria, shortness of breath, or calf pain. Notes some significant cramping today with pain not completely controlled with Tylenol/Motrin. Objective Vitals/I&O Vital Signs Date Time Temp Pulse Resp B/P Pulse Ox O2 Delivery O2 Flow Rate FiO2 01/02/17 08:00 68 18 109/69 01/02/17 08:00 97.5 01/01/17 19:35 97.9 82 18 102/64 Objective Remarks GENERAL: Well-nourished, well-developed patient. CARDIOVASCULAR: Regular rate and rhythm without murmurs, gallops, or rubs. RESPIRATORY: Breath sounds equal bilaterally. No accessory muscle use. ABDOMEN/GI: Abdomen soft, non-tender. Fundus: Firm, non-tender at umbilicus. GENITOURINARY: Light to moderate bleeding. EXTREMITIES: No cyanosis or edema, non-tender, without signs of DVT. Medications and IVs Current Medications Medications (Trade) Dose Ordered Sig/Ellie Route Start Time Stop Time Status Last Admin (NS Flush) 2 ml BID IV FLUSH 01/01/17 21:00 (NS Flush) 2 ml UNSCH PRN IV FLUSH 01/01/17 09:15 (Tylenol) 650 mg Q4H PRN PO 01/01/17 09:15 01/02/17 00:11 (Motrin) 600 mg Q6H PRN PO 01/01/17 09:15 01/02/17 07:40 (Americaine 20% Top Spr) 1 spray Q4H PRN TOPICAL 01/01/17 09:15 01/01/17 10:18 (Tucks Pads) 1 applic QID PRN TOPICAL 01/01/17 09:15 01/01/17 10:18 (Jailyn-Colace) 2 tab Q12H PRN PO 01/01/17 09:15 01/02/17 00:11 (Ambien) 5 mg HS PRN PO 01/01/17 09:15 01/02/17 03:01 (Mag-Al Plus Susp Liq) 15 ml Q8H PRN PO 01/01/17 09:15 (Zofran Odt) 4 mg Q6H PRN PO 01/01/17 09:15 (Percocet 5-325 Mg) 1 tab Q4H PRN PO 01/02/17 09:30 01/02/17 10:07 Assessment/Plan Assessment and Plan 26 yo female s/p PPD 1. - AFVSS - Continue routine care - Motrin and Percocet PRN pain - Encourage OOB - Pelvic rest x 6 wks. - Contraception: Undecided - Anticipate D/C 01/03 Ugo Mckeon MD R1 Jan 02, 2017 11:08
[2017-01-02] MEDS: GABAPENTIN 300 MG CAP PO SCH (17:45)
[2017-01-02 20:00] VITALS: BP 104/69; PULSE 77; RESP 20; TEMP 97.9
[2017-01-03] MEDS: oxyCODONE/ACETAMINOPHEN 5 MG/325 MG TAB PO PRN ×3 (00:21→09:38)
[2017-01-03] MEDS: IBUPROFEN 600 MG TAB PO PRN ×2 (05:30→13:44)
[2017-01-03] MEDS ORDERED: OXYC1TAB63 PO (06:35)
[2017-01-03] MEDS ORDERED: IBUP-232 PO (06:35)
--- NOTE | 2017-01-03 06:36 | HHI.DCPOC ---
Discharge Care Plan Diagnosis: (1) Precipitous delivery, delivered (current hospitalization) (2) PROM (premature rupture of membranes) (3) Premature labor Report Symptoms to Your Doctor -Temperature above 100.5 degrees -Redness, of incision or excessive or foul smelling drainage -Unusual pain or calf pain -Increased vaginal bleeding -Painful or difficulty urinating -Feelings of extreme sadness or anxiety after 2 weeks Goals to Promote Your Health * To prevent worsening of your condition and complications * To maintain your health at the optimal level Directions to Meet Your Goals Take your medications as prescribed Follow your dietary instruction Follow activity as directed Ensure plenty of rest for recovery Drink fluids for hydration Keep your appointments as scheduled Take your immunizations and boosters as scheduled If your symptoms worsen call your PCP, if no PCP go to Urgent Care Center or Emergency Room Smoking is Dangerous to Your Health. Avoid second hand smoke Call the 24-hour crisis hotline for domestic abuse at Ugo Mckeon MD R1 Jan 03, 2017 06:36
[2017-01-03 08:30] VITALS: BP 102/54; PULSE 20; PULSE 75; RESP 20; TEMP 97.4
[2017-01-03] MEDS: SODIUM CHLORIDE 0.9% FLUSH 10 ML FLUSH IV FLUSH SCH (09:00)
[2017-01-03] MEDS: GABAPENTIN 300 MG CAP PO SCH ×2 (09:38→13:44)
--- NOTE | 2017-01-03 10:51 | HHI.OB ---
Subjective Post Day: 2 Remarks 26 year old female s/p at 31 wks gestation, PPD 2. AFVSS. Patient reports she is feeling well. Bleeding is decreasing and pain is well- controlled. She is breast + formula feeding and bonding well with baby. Ambulating without difficulties. She is tolerating a diet without nausea or vomiting. She has had a bowel movement. She has passed gas. Denies chest pain, dysuria, shortness of breath, or calf pain. Objective Vitals/I&O Vital Signs Date Time Temp Pulse Resp B/P Pulse Ox O2 Delivery O2 Flow Rate FiO2 01/03/17 08:30 97.4 01/03/17 08:30 75 01/03/17 08:30 20 20 102/54 01/02/17 20:00 97.9 77 20 104/69 Objective Remarks GENERAL: Well-nourished, well-developed patient. CARDIOVASCULAR: Regular rate and rhythm without murmurs, gallops, or rubs. RESPIRATORY: Breath sounds equal bilaterally. No accessory muscle use. ABDOMEN/GI: Abdomen soft, non-tender. Fundus: Firm, non-tender at umbilicus. GENITOURINARY: Light to moderate bleeding. EXTREMITIES: No cyanosis or edema, non-tender, without signs of DVT. Medications and IVs Current Medications Medications (Trade) Dose Ordered Sig/Ellie Route Start Time Stop Time Status Last Admin (NS Flush) 2 ml BID IV FLUSH 01/01/17 21:00 (NS Flush) 2 ml UNSCH PRN IV FLUSH 01/01/17 09:15 (Tylenol) 650 mg Q4H PRN PO 01/01/17 09:15 01/02/17 00:11 (Motrin) 600 mg Q6H PRN PO 01/01/17 09:15 01/03/17 05:30 (Americaine 20% Top Spr) 1 spray Q4H PRN TOPICAL 01/01/17 09:15 01/01/17 10:18 (Tucks Pads) 1 applic QID PRN TOPICAL 01/01/17 09:15 01/01/17 10:18 (Jailyn-Colace) 2 tab Q12H PRN PO 01/01/17 09:15 01/02/17 00:11 (Ambien) 5 mg HS PRN PO 01/01/17 09:15 01/02/17 03:01 (Mag-Al Plus Susp Liq) 15 ml Q8H PRN PO 01/01/17 09:15 (Zofran Odt) 4 mg Q6H PRN PO 01/01/17 09:15 (Percocet 5-325 Mg) 1 tab Q4H PRN PO 01/02/17 09:30 01/03/17 09:38 (Neurontin) 300 mg TID PO 01/02/17 18:00 01/03/17 09:38 Assessment/Plan Assessment and Plan 26 yo female s/p PPD 2. - AFVSS - Continue routine care - Motrin and Percocet PRN pain - Encourage OOB - Pelvic rest x 6 wks. - Contraception: Undecided - Discharge home today Ugo Mckeon MD R1 Jan 03, 2017 10:51
[2017-01-03] MEDS: WITCH HAZEL 50%/GLYCERIN 12.5% 40 PAD JAR TOPICAL PRN (13:56)
[2017-01-03 16:05] LABS: BATH SALTS (MDPV) UR NEG (NEG); ECSTASY (MDMA) UR NEG (NEG); HEROIN (6-ACETYLMORPHINE) UR NEG (NEG); HYDROMORPHONE U NEG (NEG); K2 SPICE UR NEG (NEG); OBMETHADONE UR NEG (NEG); OXYCODONE (PERCODAN) NEG (NEG); PHENCYCLIDINE URINE NEG (NEG)
[2017-01-03 16:06] LABS: GABAPENTIN UR POS (NEG)
== END 2017-01-03 13:55 | disposition home or self-care (01) | DRG 775 ==
LOC: HOBED 08:09 → H2EB 08:40 → H1EA 09:57
PROVIDERS: ADMIT Obstetrics & Gynecology Obstetrics; ATTEND Obstetrics & Gynecology Obstetrics
PROC: 10E0XZZ Delivery of Products of Conception, External Approach (ICD-10-PCS; principal; 2017-01-01)
DX: O42.113 Preterm premature rupture of membranes, onset of labor more than 24 hours following rupture, third trimester (principal); F17.210 Nicotine dependence, cigarettes, uncomplicated; O99.334 Smoking (tobacco) complicating childbirth; O62.3 Precipitate labor; Z37.0 Single live birth; Z3A.31 31 weeks gestation of pregnancy; Z88.0 Allergy status to penicillin; Z91.041 Radiographic dye allergy status
CPT/HCPCS: 80307; 81001; 82731; 82805; 84112; 85007; 85027; 86592; 86850; 86900; 86901; 87070; 87077; 87086; 87186; 88307; 90715; 99285; G0481; J3010